=== PATIENT | male | born 1990 | race Caucasian/White ===

== ENCOUNTER 2024-09-22 22:05 | Emergency (ER) | payer MEDICARE, OTHER ==
[~2024-09-22] VITALS: Ht 160 cm; Wt 90.0 kg
[2024-09-22] MEDS: ACETAMINOPHEN 325 MG TABLET PO ONE (23:45)
[2024-09-22] MEDS: IBUPROFEN 400 MG TABLET PO ONE (23:45)
[2024-09-23 00:33] VITALS: BP 133/74; PULSE 74; RESP 20; TEMP 97.8; O2SAT 100
== END 2024-09-23 01:03 | disposition home or self-care (01) ==
LOC: EMS 22:05
DX: L04.9 Acute lymphadenitis, unspecified (principal); I10 Essential (primary) hypertension; F12.90 Cannabis use, unspecified, uncomplicated; F20.9 Schizophrenia, unspecified; F10.90 Alcohol use, unspecified, uncomplicated; Y90.9 Presence of alcohol in blood, level not specified
CPT/HCPCS: 99283